=== PATIENT | male | born 1955 | race Caucasian/White ===

== ENCOUNTER 2016-01-11 20:10 | Outpatient (RCR) | payer BC, OTHER ==
[2016-01-10 20:00] VITALS: BP 129/78
[~2016-01-11] VITALS: Ht 177.8 cm; Wt 110.4 kg
[~2016-01-11 20:10] MED LIST: AMLO10TA2 PO; AMLO5TAB4 PO; ASPI325T32 PO; CEPH-507 PO; LISI10TA2 PO; LISI40TA PO; OXYC-471 PO
[2016-01-11 20:35] VITALS: BP 131/80
== END 2016-04-09 | disposition still patient (30) ==
LOC: 4TH RCR 20:10 → EDSTATUS 01-12 14:07
PROVIDERS: ATTEND Surgery
DX: L97.213 Non-pressure chronic ulcer of right calf with necrosis of muscle (principal); L76.32 Postprocedural hematoma of skin and subcutaneous tissue following other procedure; T79.A21A Traumatic compartment syndrome of right lower extremity, initial encounter
CPT/HCPCS: 99212

== ENCOUNTER 2016-04-07 14:18 | Outpatient (RCR) | payer BC, OTHER | END 2016-04-08 | disposition home or self-care (01) | LOC: WOUNDCARE 14:18 | PROVIDERS: ATTEND Surgery | DX: L97.213 Non-pressure chronic ulcer of right calf with necrosis of muscle (principal); L76.32 Postprocedural hematoma of skin and subcutaneous tissue following other procedure; T79.A21A Traumatic compartment syndrome of right lower extremity, initial encounter; X94 Assault by rifle, shotgun and larger firearm discharge; I87.331 Chronic venous hypertension (idiopathic) with ulcer and inflammation of right lower extremity | CPT/HCPCS: 10140; 11042; 11043; 11045; 11046; 87070; 87075; 87077; 87186; 87205 ==

== ENCOUNTER 2016-06-30 14:30 | Outpatient (RCR) | payer BC, OTHER | END 2016-06-30 16:00 | disposition home or self-care (01) | LOC: WOUNDCARE 14:30 | PROVIDERS: ATTEND Surgery | DX: L97.213 Non-pressure chronic ulcer of right calf with necrosis of muscle (principal); I87.331 Chronic venous hypertension (idiopathic) with ulcer and inflammation of right lower extremity; L76.32 Postprocedural hematoma of skin and subcutaneous tissue following other procedure; T79.A21A Traumatic compartment syndrome of right lower extremity, initial encounter; X94 Assault by rifle, shotgun and larger firearm discharge | CPT/HCPCS: 11042; 99212; 99213 ==